=== PATIENT | female | born 1940 | race Caucasian/White ===

== ENCOUNTER 2018-09-10 13:14 | Observation (INO) ==
[2018-09-10] MEDS ORDERED: MethylPREDNISolone Sod Succinate Inj 125 MG/2 ML Vial IV.PUSH ONE (13:40)
--- NOTE | 2018-09-10 14:24 | XR ---
EXAM DATE: 09/10/2018 1:40 PM EDT AGE/SEX: 78 years / Female INDICATIONS: Short of breath CLINICAL DATA: This is the patient's initial encounter. Patient reports that signs and symptoms have been present for 1 day and indicates a pain score of 0/10. MEDICAL/SURGICAL HISTORY: . Chronic obstructive pulmonary disease None. COMPARISON: [facility] [place], CHEST SINGLE AP, 11/30/2015. . FINDINGS: A single AP view of the chest demonstrates the lungs to be symmetrically aerated without evidence of mass, infiltrate or effusion. The cardiomediastinal contours are unremarkable. Osseous structures a re intact. CONCLUSION: 1. No acute abnormality or significant interval change. Electronically signed by: Leonardo Bryant MD 09/10/2018 2:23 PM EDT
[2018-09-10 14:31] LABS: Baso # (Auto) 0.1 th/mm3 (0.0-0.2); Baso % (Auto) 0.4 % (0.0-2.0); Eos % (Auto) 0.3 % (0.0-4.0); Hematocrit 41.3 % (35.0-46.0); Hemoglobin 13.7 gm/dL (11.6-15.3); Lymph # (Auto) 3.3 th/mm3 (1.0-4.8); Lymph % (Auto) 23.5 % (9.0-44.0); Mean Corpuscular HGB Conc 33.2 % (32.0-36.0); Mean Corpuscular Hemoglobin 29.9 pg (27.0-34.0); Mean Platelet Volume 8.5 fL (7.0-11.0); Mono # (Auto) 0.8 th/mm3 (0.0-0.9); Mono % (Auto) 5.8 % (0.0-8.0); Neut # (Auto) 9.8 th/mm3 (1.8-7.7); Platelet Count 370 th/mm3 (150-450); Red Blood Count 4.59 mil/mm3 (4.00-5.30); Red Cell Distribution Width 13.8 % (11.6-17.2); White Blood Count 14.1 th/mm3 (4.0-11.0)
[2018-09-10 14:54] LABS: Calcium 9.2 mg/dL (8.5-10.1); Potassium 4.3 meq/L (3.5-5.1)
[2018-09-10] MEDS ORDERED: Sodium Chlor 0.9% Inj 500 ML IV.SIG SCH (15:00)
--- NOTE | 2018-09-10 15:18 | ED ---
HPI General Chief Complaint: Respiratory Symptoms Stated Complaint: respiratory Time Seen by Provider: 09/10/18 13:35 Source: patient and family Mode of arrival: wheelchair Limitations: no limitations History of Present Illness HPI Narrative: 78-year-old female with a history of COPD and asthma the presents to the ED for evaluation of cough and congestion. Patient has a history of this in the past. Has been seen for this evaluation in the past. She uses inhalers and nebulizers at home. Per caregiver her prednisone was increased from 10 mg to 20 mg by her to help with her symptoms. She does have a history of diabetes. She denies any chest pain or shortness of breath at this time. She was given some breathing treatments before coming in she does feel improved. She did come here to get her checked out as apparently there about to go out of town. She does have a significant history of allergies to Levaquin and penicillin. Denies any sick contacts. Denies any urinary or bowel movement issues. No fevers chills or sweats. Denies any pain. No sore throat. No ear pain. Related Data Home Medications Medication Instructions Recorded Confirmed albuterol sulfate 2.5 mg INHALATION Q4H PRN 08/02/18 09/10/18 alprazolam [Xanax] 0.25 mg PO BID PRN 08/02/18 09/10/18 cholestyramine-aspartame 4 g PO BID 08/02/18 09/10/18 hydrocodone-acetaminophen 1 tab PO Q6H PRN 08/02/18 09/10/18 metformin 850 mg PO BID 08/02/18 09/10/18 ropinirole 2 mg PO HS 08/02/18 09/10/18 prednisone 10 mg PO DAILY 09/10/18 09/10/18 Previous Rx's Medication Instructions Recorded albuterol sulfate 2 inh INHALATION Q4-6H PRN #1 g 09/10/18 albuterol sulfate 2.5 mg INHALATION Q4-8H PRN #90 ml 09/10/18 azithromycin 250 mg PO DAILY #6 tab 09/10/18 prednisone 20 mg PO BID 5 Days #10 tab 09/10/18 Allergies Allergy/AdvReac Type Severity Reaction Status Date / Time levofloxacin Allergy Severe ERYTHEMA Verified 09/10/18 13:28 penicillin G Allergy Severe ANAPHYLAXIS Verified 09/10/18 13:28 Review of Systems ROS: all other systems reviewed are negative [facility] Medical History Medical History Neuropathy (Acute) Anxiety (Acute) COPD (chronic obstructive pulmonary disease) (Acute) Cholecystectomy planned (Acute) Chronic diarrhea (Acute) Chronic pain (Acute) Diabetes (Acute) Surgical History Surgical History H/O abdominal surgery (Acute) Family History Family History Other CVA (cerebral vascular accident) Cervical cancer Social History Social History Substance History: No History of Abuse Second Hand Smoke Exposure: Yes Smoking Status: Never smoker How Often Do You Have a Drink Containing Alcohol: Never Recent Travel in [facility] within the Last 8 Weeks: No Recent Out of Country Travel within the Last 8 Weeks: No Immunization History Tetanus Immunization: Unsure Exam Narrative Exam Narrative: GENERAL: Well appearing SKIN: Focused skin assessment warm/dry. HEAD: Atraumatic. Normocephalic. EYES: Pupils equal and round. No scleral icterus. No injection or drainage. ENT: No nasal bleeding or discharge. Mucous membranes pink and moist. Tongue is midline. No uvula deviation. NECK: Trachea midline. No JVD. CARDIOVASCULAR: Regular rate and rhythm. No murmur appreciated. RESPIRATORY: No accessory muscle use. Mild wheezing heard in the lower lung berumen. Breath sounds equal bilaterally. GASTROINTESTINAL: Abdomen soft, non-tender, nondistended. Hepatic and splenic margins not palpable. MUSCULOSKELETAL: No obvious deformities. No clubbing. No cyanosis. No edema. Full range of motion of the upper and lower extremities bilaterally. 2+ pulses bilaterally. NEUROLOGICAL: Awake and alert. No obvious cranial nerve deficits. Motor grossly within normal limits. Normal speech. PSYCHIATRIC: Appropriate mood and affect; insight and judgment normal. Course Initial Documented Vital Signs Temperature 98.8 F 09/10/18 13:25 Pulse Rate 49 L 09/10/18 13:25 Respiratory Rate 24 09/10/18 13:25 Blood Pressure 140/59 L 09/10/18 13:25 Pulse Oximetry 95 09/10/18 13:25 Last Documented Vital Signs Temperature 98.8 F 09/10/18 13:25 Pulse Rate 88 09/10/18 17:27 Respiratory Rate 18 09/10/18 17:27 Blood Pressure 110/62 09/10/18 17:27 Pulse Oximetry 96 09/10/18 17:27 Medical Decision Making MDM Narrative Medical decision making narrative: 78-year-old female that presents to the ED for evaluation of cough. Patient was properly examined and was found to have signs and symptoms consistent appears to be mild COPD exacerbation with possible bronchitis. Labs and imaging ordered. Labs and imaging showed hyperglycemia otherwise unremarkable exam. Given breathing treatments and Solu- Medrol here. Sugar elevated. Patient was given bolus of fluid and insulin. Blood sugar rechecked and it appeared to be higher. Patient was given another 10 units of insulin and sugar still going higher. Because patient's sugars not controlled I do recommend admission. Likely this is partially a side effect of the steroids that she is already taking. I do recommend admission for further evaluation and treatment of this. Case discussed with Dr. Tobias who agrees with this. Family and patient agree with this. Medical Screen Exam Complete: Yes Emergency Medical Condition: Yes Differential Diagnosis Differential Diagnosis: COPD exacerbation versus asthma exacerbation versus normal exam versus bronchitis versus pneumonia Medical Records Medical records reviewed: Yes I reviewed the patient's medical records. Lab Data Lab results reviewed: Yes I reviewed the patient's lab results. Result diagrams: 09/10/18 13:40 09/10/18 13:40 Lab Results 09/10/18 09/10/18 09/10/18 Range/Units 13:40 13:40 15:57 WBC 14.1 H (4.0-11.0) th/mm3 RBC 4.59 (4.00-5.30) mil/mm3 Hgb 13.7 (11.6-15.3) gm/dL Hct 41.3 (35.0-46.0) % MCV 90.0 (80.0-100.0) fL MCH 29.9 (27.0-34.0) pg MCHC 33.2 (32.0-36.0) % RDW 13.8 (11.6-17.2) % Plt Count 370 (150-450) th/mm3 MPV 8.5 (7.0-11.0) fL Neut % (Auto) 70.0 (16.0-70.0) % Lymph % (Auto) 23.5 (9.0-44.0) % [place] % (Auto) 5.8 (0.0-8.0) % Eos % (Auto) 0.3 (0.0-4.0) % Baso % (Auto) 0.4 (0.0-2.0) % Neut # (Auto) 9.8 H (1.8-7.7) th/mm3 Lymph # (Auto) 3.3 (1.0-4.8) th/mm3 [place] # (Auto) 0.8 (0.0-0.9) th/mm3 Eos # (Auto) 0.0 (0.0-0.4) th/mm3 Baso # (Auto) 0.1 (0.0-0.2) th/mm3 WBC Differential . Differential Comment Auto diff final Sodium 130 L (136-145) meq/L Potassium 4.3 (3.5-5.1) meq/L Chloride 97 L (98-107) meq/L Carbon Dioxide 25.0 (21.0-32.0) meq/L Anion Gap 8 (5-15) meq/L BUN 22 H (7-18) mg/dL Creatinine 1.22 H (0.50-1.00) mg/dL Estimated GFR 43 L (>89) mL/min POC Glucose 525 H* (68-110) mg/dl Random Glucose 515 H* (74-106) mg/dL Calcium 9.2 (8.5-10.1) mg/dL 09/10/18 Range/Units 16:50 WBC (4.0-11.0) th/mm3 RBC (4.00-5.30) mil/mm3 Hgb (11.6-15.3) gm/dL Hct (35.0-46.0) % MCV (80.0-100.0) fL MCH (27.0-34.0) pg MCHC (32.0-36.0) % RDW (11.6-17.2) % Plt Count (150-450) th/mm3 MPV (7.0-11.0) fL Neut % (Auto) (16.0-70.0) % Lymph % (Auto) (9.0-44.0) % [place] % (Auto) (0.0-8.0) % Eos % (Auto) (0.0-4.0) % Baso % (Auto) (0.0-2.0) % Neut # (Auto) (1.8-7.7) th/mm3 Lymph # (Auto) (1.0-4.8) th/mm3 [place] # (Auto) (0.0-0.9) th/mm3 Eos # (Auto) (0.0-0.4) th/mm3 Baso # (Auto) (0.0-0.2) th/mm3 WBC Differential Differential Comment Sodium (136-145) meq/L Potassium (3.5-5.1) meq/L Chloride (98-107) meq/L Carbon Dioxide (21.0-32.0) meq/L Anion Gap (5-15) meq/L BUN (7-18) mg/dL Creatinine (0.50-1.00) mg/dL Estimated GFR (>89) mL/min POC Glucose 570 H* (68-110) mg/dl Random Glucose (74-106) mg/dL Calcium (8.5-10.1) mg/dL Imaging Data Attestation: I personally reviewed and interpreted this imaging study as follows : Radiologist's impression: Chest X-Ray 09/10/18 13:40 CONCLUSION: 1. No acute abnormality or significant interval change. Discharge Plan Discharge Disposition Patient Disposition: 30 Still Patient Discharge Condition Condition: Stable Discharge Details Anticipated Discharge Date: 09/10/18 Diagnosis: Acute hyperglycemia, Bronchitis, COPD exacerbation Physicians Team ED Provider: Janneth Cherry ED Midlevel Provider: Mickey Solano Primary Care Provider: Primary Care Loretta Olivas Attending Provider: Damien Scott Other Providers: [facility],Insurance Status ED Status: Admitted Observation Patient
[2018-09-10] MEDS ORDERED: Dextrose 50% in Water 50 ML Vial IV.PUSH PRN (17:08)
[2018-09-10] MEDS ORDERED: Acetaminophen 325 MG Tablet PO PRN (17:10)
[2018-09-10] MEDS: Heparin - SQ 10,000 UNITS/ML Vial SQ SCH (17:26)
[2018-09-10] MEDS: Sod Chloride 0.9% Inj 1,000 ML IV.CONT SCH (17:27)
--- NOTE | 2018-09-10 17:36 | P.HPIM ---
History of Present Illness Primary Care Physician: No Primary Care Physician Chief Complaint: Shortness of breath History of Present Illness: The patient is a 78-year-old female with a past medical history of COPD and diabetes who is presenting to the hospital with shortness of breath. She says her breathing started to get troublesome about 1 week ago. She says she developed a cough along with phlegm production. She denies any associated chest pain or any fevers. She said that she has been on steroids for a long time, prescribed by her primary care doctor. She says she has been tolerating a diet. She ambulates with a walker. She says she is currently living with her daughter and her grandson. The patient currently feels like her breathing is much improved, however, her blood sugars were noted to be elevated even after multiple doses of insulin. She did receive IV Solu-Medrol in the emergency department and per report her home prednisone was doubled up this morning. Discussed with nursing. Review of Systems All other systems reviewed negative except as stated in HPI PMFSH - History History Provided By: Patient - Medical History Medical History: Medical History (Last Updated 09/10/18 @ 17:29 by Damien Scott DO) Neuropathy Anxiety COPD (chronic obstructive pulmonary disease) Cholecystectomy planned Chronic diarrhea Chronic pain Diabetes - Surgical History Surgical History: Surgical History (Last Updated 09/10/18 @ 17:29 by Damien Scott DO) H/O abdominal surgery - Family History Family History: Family History (Last Updated 09/10/18 @ 17:31 by Damien Scott DO) Other CVA (cerebral vascular accident) Cervical cancer - Social History I have reviewed the patient's Social History: Yes - Tobacco History Second Hand Smoke Exposure: Yes Smoking Status: Never smoker - Alcohol History How Often Do You Have a Drink Containing Alcohol: Never - Substance Use History Substance History: No History of Abuse - Travel History Recent Travel in the [place] Within the Last 8 Weeks: No Recent Travel Out of the Country Within the Last 8 Weeks: No - Immunization History Tetanus Immunization: Unsure Medications and Allergies Active Medications: Active Medications Acetaminophen (Tylenol) 650 mg PO Q4H PRN PRN Reason: Temp > 100.4; pain 1-6 Hydrocodone Bitart/Acetaminophen ([place] 10/325) 1 tab PO Q4H PRN PRN Reason: Pain 6-10 Alprazolam (Xanax) 0.25 mg PO BID PRN PRN Reason: Anxiety Cholestyramine Resin (Questran Light 4 Gm Pkt) 4 gm PO BID JESSICA Dextrose (D50w Vial) 50 ml IV.PUSH UNSCH PRN PRN Reason: PER HYPOGLYCEMIA PROTOCOL Glucagon (Glucagon Inj) 1 mg OTHER PRN PRN PRN Reason: for Hypoglycemia Protocol Heparin Sodium (Porcine) (Heparin Inj) 5,000 units SQ Q8H JESSICA Sodium Chloride (Ns Inj) 500 mls @ 0 mls/hr IV.SIG BOLUS JESSICA Last Infusion: 09/10/18 16:21 Dose: Infused Sodium Chloride (Ns Inj) 1,000 mls @ 100 mls/hr IV.CONT .Q10H JESSICA Insulin Aspart (Novolog Insulin Correctional Sugar Inj) 0 unit SQ ACHS JESSICA; Protocol Insulin Aspart (Novolog Inj) 3 units SQ TIDAC JESSICA Insulin Detemir (Levemir Inj) 15 unit SQ HS JESSICA Prednisone (Deltasone) 10 mg PO DAILY JESSICA Ropinirole HCl (Requip) 2 mg PO HS JESSICA Senna/Docusate Sodium (Christa-Colace) 1 tab PO BID [facility] Allergies Allergy/AdvReac Type Severity Reaction Status Date / Time levofloxacin Allergy Severe ERYTHEMA Verified 09/10/18 13:28 penicillin G Allergy Severe ANAPHYLAXIS Verified 09/10/18 13:28 Home Medications Medication Instructions Recorded Confirmed Type albuterol sulfate 2.5 mg INHALATION Q4H PRN 08/02/18 09/10/18 History alprazolam [Xanax] 0.25 mg PO BID PRN 08/02/18 09/10/18 History cholestyramine-aspartame 4 g PO BID 08/02/18 09/10/18 History hydrocodone-acetaminophen 1 tab PO Q6H PRN 08/02/18 09/10/18 History metformin 850 mg PO BID 08/02/18 09/10/18 History ropinirole 2 mg PO HS 08/02/18 09/10/18 History prednisone 10 mg PO DAILY 09/10/18 09/10/18 History Exam Vital signs: Vital Signs 09/10/18 13:25 09/10/18 13:27 09/10/18 13:40 Temperature 98.8 F Pulse Rate 49 L 101 H Respiratory Rate 24 20 Blood Pressure 140/59 L 105/51 L Pulse Oximetry 95 95 95 09/10/18 13:54 09/10/18 17:10 Temperature Pulse Rate 93 H 102 H Respiratory Rate 20 20 Blood Pressure 106/58 L Pulse Oximetry 96 Intake & Output 09/09/18 09/10/18 09/10/18 18:59 06:59 18:59 Intake Total 500 / 500 Balance 500 / 500 Weight 74.843 kg Intake: IV 500 / 500 NS Inj 500 ML @ Wide Open IV. 500 / 500 SIG BOLUS JESSICA Rx#:[id number] Narrative: GENERAL: Well appearing, no distress. SKIN: Focused skin assessment warm/dry. HEAD: Atraumatic. Normocephalic. EYES: Pupils equal and round. No scleral icterus. No injection or drainage. ENT: No nasal bleeding or discharge. Mucous membranes pink and moist. Tongue is midline. No uvula deviation. NECK: Trachea midline. No JVD. CARDIOVASCULAR: Regular rate and rhythm. No murmur appreciated. RESPIRATORY: No accessory muscle use. Mild wheezing heard in the lower lung berumen. Breath sounds equal bilaterally. GASTROINTESTINAL: Abdomen soft, non-tender, nondistended. Hepatic and splenic margins not palpable. MUSCULOSKELETAL: No obvious deformities. No clubbing. No cyanosis. No edema. Full range of motion of the upper and lower extremities bilaterally. 2+ pulses bilaterally. NEUROLOGICAL: Awake and alert. No obvious cranial nerve deficits. Motor grossly within normal limits. Normal speech. PSYCHIATRIC: Appropriate mood and affect; insight and judgment normal. Results - Labs CBC & Chem 7: 09/10/18 13:40 09/10/18 13:40 Labs: Short CBC 09/10/18 Range/Units 13:40 WBC 14.1 H (4.0-11.0) th/mm3 Hgb 13.7 (11.6-15.3) gm/dL Hct 41.3 (35.0-46.0) % Plt Count 370 (150-450) th/mm3 BMP 09/10/18 13:40 Sodium 130 L Potassium 4.3 Chloride 97 L Carbon Dioxide 25.0 BUN 22 H Creatinine 1.22 H Calcium 9.2 - Imaging Impressions Chest X-Ray 09/10/18 13:40 CONCLUSION: 1. No acute abnormality or significant interval change. Caprini VTE Risk Assessment Caprini VTE Risk Assessment: Moderate/High Risk (score >= 2) Caprini Risk Assessment Model: Point Value = 1 Point Value = 2 Point Value = 3 Point Value = 5 Age 41-60 Minor surgery BMI > 25 kg/m2 Swollen legs Varicose veins or History of unexplained or recurrent spontaneous Oral contraceptives or hormone replacement Sepsis (< 1 month) Serious lung disease, including pneumonia (< 1 month) Abnormal pulmonary function Acute myocardial infarction Congestive heart failure (< 1 month) History of inflammatory bowel disease Medical patient at bed rest Age 61-74 Arthroscopic surgery Major open surgery (> 45 min) Laparoscopic surgery (> 45 min) Malignancy Confined to bed (> 72 hours) Immobilizing plaster cast Central venous access Age >= 75 History of VTE Family history of VTE Factor V Leiden Prothrombin [id number] Lupus anticoagulant Anticardiolipin antibodies Elevated serum homocysteine Heparin-induced thrombocytopenia Other congenital or acquired thrombophilia Stroke (< 1 month) Elective arthroplasty Hip, pelvis, or leg fracture Acute spinal cord injury (< 1 month) Prophylaxis Regimen: Total Risk Factor Score Risk Level Prophylaxis Regimen 0-1 Low Early ambulation 2 Moderate Order ONE of the following: *Sequential Compression Device (SCD) *Heparin 5000 units SQ BID 3-4 Higher Order ONE of the following medications: *Heparin 5000 units SQ TID *Enoxaparin/Lovenox 40 mg SQ daily (WT < 150 kg, CrCl > 30 mL/min) *Enoxaparin/Lovenox 30 mg SQ daily (WT < 150 kg, CrCl > 10-29 mL/min) *Enoxaparin/Lovenox 30 mg SQ BID (WT < 150 kg, CrCl > 30 mL/min) AND/OR *Sequential Compression Device (SCD) 5 or more Highest Order ONE of the following medications: *Heparin 5000 units SQ TID (Preferred with Epidurals) *Enoxaparin/Lovenox 40 mg SQ daily (WT < 150 kg, CrCl > 30 mL/min) *Enoxaparin/Lovenox 30 mg SQ daily (WT < 150 kg, CrCl > 10-29 mL/min) *Enoxaparin/Lovenox 30 mg SQ BID (WT < 150 kg, CrCl > 30 mL/min) AND *Sequential Compression Device (SCD) Assessment and Plan - Plan COPD exacerbation Currently improved. CXR unremarkable. -nebs and oxygen as needed. -resume home prednisone 10 mg daily. -IS, encourage ambulation. Hyperglycemia/ DM On metformin as an outpt. Exacerbated by IV steroids. -resume home prednisone of 10 mg daily. -3 units aspart with meals, 15 units Levemir HS. -insulin sliding scale, diabetic diet. -IVFs. Renal insufficiency Likely pre-renal. Also with pseudohyponatremia from the hyperglycemia. -IVFs and monitor. -avoid nephrotoxins. Leukocytosis Likely s/t chronic steroids. -monitor. PPx: Heparin Code Status: Full
[2018-09-10] MEDS: Senna/Docusate Sodium 8.6/50 MG Tablet PO SCH (20:15)
[2018-09-10] MEDS: Cholestyramine Light 4 GM Packet PO SCH (20:49)
[2018-09-10] MEDS: Insulin NovoLOG Aspart Correctional Sugar Inj SQ SCH (22:44)
[2018-09-10] MEDS: Insulin Detemir Inj 1,000 UNIT/10 ML Vial SQ SCH (22:44)
[2018-09-11] MEDS: Heparin - SQ 10,000 UNITS/ML Vial SQ SCH ×3 (00:15→17:23)
[2018-09-11] MEDS: Sod Chloride 0.9% Inj 1,000 ML IV.CONT SCH ×2 (04:04→14:11)
[2018-09-11] MEDS: ALPRAZolam 0.25 MG Tablet PO PRN (05:17)
[2018-09-11 06:07] LABS: Baso # (Auto) 0.1 th/mm3 (0.0-0.2); Baso % (Auto) 0.6 % (0.0-2.0); Hematocrit 35.6 % (35.0-46.0); Hemoglobin 12.4 gm/dL (11.6-15.3); Lymph # (Auto) 2.4 th/mm3 (1.0-4.8); Lymph % (Auto) 17.7 % (9.0-44.0); Mean Corpuscular HGB Conc 34.7 % (32.0-36.0); Mean Corpuscular Hemoglobin 30.3 pg (27.0-34.0); Mean Corpuscular Volume 87.3 fL (80.0-100.0); Mean Platelet Volume 8.7 fL (7.0-11.0); Mono # (Auto) 0.6 th/mm3 (0.0-0.9); Mono % (Auto) 4.1 % (0.0-8.0); Neut # (Auto) 10.8 th/mm3 (1.8-7.7); Neut % (Auto) 77.6 % (16.0-70.0); Platelet Count 324 th/mm3 (150-450); Red Blood Count 4.08 mil/mm3 (4.00-5.30); Red Cell Distribution Width 13.8 % (11.6-17.2); White Blood Count 13.8 th/mm3 (4.0-11.0)
[2018-09-11 06:36] LABS: Alanine Aminotransferase 122 U/L (10-53); Albumin 2.7 g/dL (3.4-5.0); Alkaline Phosphatase 128 U/L (45-117); Anion Gap 9 meq/L (5-15); Aspartate Aminotransferase 18 U/L (15-37); Blood Urea Nitrogen 28 mg/dL (7-18); Calcium 8.9 mg/dL (8.5-10.1); Carbon Dioxide 22.9 meq/L (21.0-32.0); Chloride 103 meq/L (98-107); Glomerular Filtration Rate 64 mL/min (>89); Glucose,Random 151 mg/dL (74-106); Potassium 4.3 meq/L (3.5-5.1); Sodium 135 meq/L (136-145); Total Protein 6.1 g/dL (6.4-8.2)
[2018-09-11] MEDS: Senna/Docusate Sodium 8.6/50 MG Tablet PO SCH ×2 (08:21→21:53)
[2018-09-11] MEDS: Insulin NovoLOG Aspart Correctional Sugar Inj SQ SCH ×4 (08:21→22:06)
[2018-09-11] MEDS: predniSONE 10 MG Tablet PO SCH (08:21)
[2018-09-11] MEDS: Cholestyramine Light 4 GM Packet PO SCH ×2 (08:25→22:06)
--- NOTE | 2018-09-11 16:30 | P.PN ---
Subjective Interval history: Patient is seen lying quietly in bed. She tells me that she is feeling better and her breathing has improved. She does have some sputum but she is coughing up. No chest pain. No nausea vomiting or diarrhea. No fever or chills. Physical Exam Vital signs: Vital Signs 09/10/18 17:10 09/10/18 17:27 09/10/18 19:30 Temperature Pulse Rate 102 H 88 75 Respiratory Rate 20 18 18 Blood Pressure 106/58 L 110/62 Pulse Oximetry 96 96 09/10/18 20:00 09/11/18 00:00 09/11/18 00:15 Temperature 98.1 F Pulse Rate 68 Respiratory Rate 16 16 16 Blood Pressure 109/59 L Pulse Oximetry 97 09/11/18 00:45 09/11/18 01:38 09/11/18 03:38 Temperature 98.1 F Pulse Rate 65 Respiratory Rate 16 16 16 Blood Pressure 133/64 Pulse Oximetry 95 09/11/18 04:41 09/11/18 07:37 09/11/18 07:38 Temperature 98.3 F Pulse Rate 65 66 Respiratory Rate 16 17 Blood Pressure 135/61 Pulse Oximetry 96 96 09/11/18 07:51 09/11/18 11:59 09/11/18 12:49 Temperature 98.2 F Pulse Rate 67 75 78 Respiratory Rate 18 18 18 Blood Pressure 118/55 L 123/62 Pulse Oximetry 97 96 Intake & Output 09/10/18 09/11/18 09/11/18 18:59 06:59 18:59 Intake Total 500 / 500 1000 / 1000 1000 / 1000 Output Total 600 / 600 Balance 500 / 500 400 / 400 1000 / 1000 Weight 74.843 kg 75.47 kg Intake: IV 500 / 500 1000 / 1000 1000 / 1000 NS Inj 1,000 ML @ 100 mls/hr IV 1000 / 1000 1000 / 1000 .CONT .Q10H JESSICA Rx#:[id number] NS Inj 500 ML @ Wide Open IV. 500 / 500 SIG BOLUS JESSICA Rx#:[id number] Output: Urine 600 / 600 Other: Weight On Admission 74.843 kg Narrative: GENERAL: Well appearing, no distress. SKIN: Focused skin assessment warm/dry. Patient does have dressing on sacral ulcer that was present at admit. HEAD: Atraumatic. Normocephalic. CARDIOVASCULAR: Regular rate and rhythm. RESPIRATORY: No accessory muscle use. Mild wheezing heard in the lower lung berumen. Breath sounds equal bilaterally. GASTROINTESTINAL: Abdomen soft, non-tender, nondistended. MUSCULOSKELETAL: No obvious deformities. No clubbing. No cyanosis. No edema. Full range of motion of the upper and lower extremities bilaterally. 2+ pulses bilaterally. NEUROLOGICAL: Awake and alert. No obvious cranial nerve deficits. Motor grossly within normal limits. Normal speech. PSYCHIATRIC: Appropriate mood and affect; insight and judgment normal. Results - Labs CBC & Chem 7: 09/11/18 05:15 09/11/18 05:15 Laboratory Results - last 24 hr 09/10/18 09/10/18 09/10/18 16:50 21:39 22:46 WBC RBC Hgb Hct MCV MCH MCHC RDW Plt Count MPV Neut % (Auto) Lymph % (Auto) [place] % (Auto) Eos % (Auto) Baso % (Auto) Neut # (Auto) Lymph # (Auto) [place] # (Auto) Eos # (Auto) Baso # (Auto) WBC Differential Differential Comment Sodium Potassium Chloride Carbon Dioxide Anion Gap BUN Creatinine Estimated GFR POC Glucose 570 H* 529 H* Random Glucose 453 H* Calcium Total Bilirubin AST ALT Alkaline Phosphatase Total Protein Albumin 09/11/18 09/11/18 09/11/18 00:36 05:15 05:15 WBC 13.8 H RBC 4.08 Hgb 12.4 Hct 35.6 MCV 87.3 MCH 30.3 MCHC 34.7 RDW 13.8 Plt Count 324 MPV 8.7 Neut % (Auto) 77.6 H Lymph % (Auto) 17.7 [place] % (Auto) 4.1 Eos % (Auto) 0.0 Baso % (Auto) 0.6 Neut # (Auto) 10.8 H Lymph # (Auto) 2.4 [place] # (Auto) 0.6 Eos # (Auto) 0.0 Baso # (Auto) 0.1 WBC Differential . Differential Comment Auto diff final Sodium 135 L Potassium 4.3 Chloride 103 Carbon Dioxide 22.9 Anion Gap 9 BUN 28 H Creatinine 0.86 Estimated GFR 64 L POC Glucose 446 H Random Glucose 151 H D Calcium 8.9 Total Bilirubin 0.4 AST 18 ALT 122 H Alkaline Phosphatase 128 H Total Protein 6.1 L Albumin 2.7 L 09/11/18 09/11/18 08:16 12:58 WBC RBC Hgb Hct MCV MCH MCHC RDW Plt Count MPV Neut % (Auto) Lymph % (Auto) [place] % (Auto) Eos % (Auto) Baso % (Auto) Neut # (Auto) Lymph # (Auto) [place] # (Auto) Eos # (Auto) Baso # (Auto) WBC Differential Differential Comment Sodium Potassium Chloride Carbon Dioxide Anion Gap BUN Creatinine Estimated GFR POC Glucose 117 H 252 H Random Glucose Calcium Total Bilirubin AST ALT Alkaline Phosphatase Total Protein Albumin Assessment and Plan - Assessment (1) Bronchitis Code(s): J40 - Bronchitis, not specified as acute or chronic Status: Acute (2) COPD exacerbation Code(s): J44.1 - Chronic obstructive pulmonary disease with (acute) exacerbation Status: Acute (3) Acute hyperglycemia Code(s): R73.9 - Hyperglycemia, unspecified Status: Acute - Plan COPD exacerbation Currently improved. CXR unremarkable. -nebs and oxygen as needed. -resume home prednisone 10 mg daily. -IS, encourage ambulation. -mucinex Hyperglycemia/ DM On metformin as an outpt. Exacerbated by IV steroids. -resume home prednisone of 10 mg daily. -3 units aspart with meals, 15 units Levemir HS. -insulin sliding scale, diabetic diet. -IVFs. Renal insufficiency Likely pre-renal. Also with pseudohyponatremia from the hyperglycemia. -IVFs and monitor. -avoid nephrotoxins. Leukocytosis Likely s/t chronic steroids. -monitor. Elevated liver enzymes -Patient denies history of liver problems. Denies history of hep C. No abdominal tenderness -Possibly reactionary; monitor for trend PPx: Heparin Code Status: Full Discharge planning: Patient ambulates with walker at home. Has good family support with and daughter living in home with her.
[2018-09-11] MEDS: Insulin Detemir Inj 1,000 UNIT/10 ML Vial SQ SCH (22:06)
[2018-09-11] MEDS: guaiFENesin 600 MG ER Tablet PO SCH (22:06)
[2018-09-12] MEDS: ALPRAZolam 0.25 MG Tablet PO PRN (01:42)
[2018-09-12] MEDS: Heparin - SQ 10,000 UNITS/ML Vial SQ SCH ×2 (01:42→09:40)
[2018-09-12] MEDS: Sod Chloride 0.9% Inj 1,000 ML IV.CONT SCH ×2 (01:43→09:41)
[2018-09-12 07:38] LABS: Baso # (Auto) 0.1 th/mm3 (0.0-0.2); Baso % (Auto) 0.8 % (0.0-2.0); Eos # (Auto) 0.1 th/mm3 (0.0-0.4); Eos % (Auto) 0.9 % (0.0-4.0); Hematocrit 36.9 % (35.0-46.0); Hemoglobin 12.4 gm/dL (11.6-15.3); Lymph # (Auto) 5.7 th/mm3 (1.0-4.8); Lymph % (Auto) 40.3 % (9.0-44.0); Mean Corpuscular HGB Conc 33.7 % (32.0-36.0); Mean Corpuscular Hemoglobin 30.1 pg (27.0-34.0); Mean Corpuscular Volume 89.2 fL (80.0-100.0); Mean Platelet Volume 8.5 fL (7.0-11.0); Mono # (Auto) 0.9 th/mm3 (0.0-0.9); Mono % (Auto) 6.3 % (0.0-8.0); Neut # (Auto) 7.3 th/mm3 (1.8-7.7); Neut % (Auto) 51.7 % (16.0-70.0); Platelet Count 316 th/mm3 (150-450); Red Blood Count 4.14 mil/mm3 (4.00-5.30); Red Cell Distribution Width 14.4 % (11.6-17.2)
[2018-09-12 07:40] VITALS: BP 130/65; TEMP 98.6
[2018-09-12 07:58] VITALS: PULSE 68; RESP 14
[2018-09-12 07:59] VITALS: O2SAT 96
[2018-09-12 08:12] LABS: Albumin 2.7 g/dL (3.4-5.0); Anion Gap 8 meq/L (5-15); Aspartate Aminotransferase 13 U/L (15-37); Calcium 8.8 mg/dL (8.5-10.1); Carbon Dioxide 25.4 meq/L (21.0-32.0); Chloride 105 meq/L (98-107); Glomerular Filtration Rate 63 mL/min (>89); Glucose,Random 79 mg/dL (74-106); Potassium 4.1 meq/L (3.5-5.1); Sodium 138 meq/L (136-145)
[2018-09-12 08:20] LABS: Alanine Aminotransferase 85 U/L (10-53); Alkaline Phosphatase 105 U/L (45-117); Blood Urea Nitrogen 21 mg/dL (7-18); Total Protein 5.9 g/dL (6.4-8.2)
[2018-09-12 08:25] LABS: Creatine Kinase 21 U/L (26-192)
[2018-09-12 09:25] LABS: Lymphocytes 31 % (9-44); Monocytes 5 % (0-8); Platelet Estimate Normal (Normal); Platelet Morphology Normal (Normal); RBC Morphology Normal (Normal)
[2018-09-12] MEDS: Insulin NovoLOG Aspart Correctional Sugar Inj SQ SCH (09:31)
[2018-09-12] MEDS: Senna/Docusate Sodium 8.6/50 MG Tablet PO SCH (09:39)
[2018-09-12] MEDS: predniSONE 10 MG Tablet PO SCH (09:39)
[2018-09-12] MEDS: guaiFENesin 600 MG ER Tablet PO SCH (09:39)
[2018-09-12] MEDS: Cholestyramine Light 4 GM Packet PO SCH (09:40)
--- NOTE | 2018-09-12 11:14 | P.DS ---
Date of admission: 09/10/18 17:18 Primary care physician: No Primary Care Physician Brief History from admission: The patient is a 78-year-old female with a past medical history of COPD and diabetes who is presenting to the hospital with shortness of breath. She says her breathing started to get troublesome about 1 week ago. She says she developed a cough along with phlegm production. She denies any associated chest pain or any fevers. She said that she has been on steroids for a long time, prescribed by her primary care doctor. DS: Medications - Discharge Medications Prescriptions: albuterol sulfate 2.5 mg INHALATION Q4-8H PRN #90 ml PRN Reason: shortness of breath or wheezing albuterol sulfate 2 inh INHALATION Q4-6H PRN #1 g PRN Reason: shortness of breath azithromycin 250 mg PO DAILY #6 tab budesonide-formoterol [Symbicort] 1 puff INH BID #1 inhaler metformin [Glucophage] 1,000 mg PO BIDPC #90 tab prednisone 20 mg PO BID 5 Days #10 tab DS: Summary Hospital Course: This patient is a 78-year-old with a diagnosis of COPD and diabetes mellitus type 2. The patient presented to our facility with complaints of shortness of breath. She said that approximately 1 week prior to admission she began to have a cough with phlegm production. She was also having some shortness of breath with ambulation. 1. COPD exacerbation The patient presents with the symptoms mentioned above. She was started on antibiotics as well as steroids for the COPD exacerbation. Chest x-ray was done which did not show any infiltrate. She has been on room air and is now ambulate without any complaints of shortness of breath. The patient's symptoms have improved significantly. She will be's sent home with an albuterol and Symbicort inhalers. She was also given a prescription for azithromycin which the patient can continue for the next few days. She should follow-up with her primary care physician which the patient will have in [place] as she is currently in the process of moving this week. Outpatient pulmonary function tests should be performed. As per the patient she takes 10 mg of prednisone daily however it is unclear why the patient is on prednisone chronically. This should be addressed by the patient's primary care physician and if there is no need for the patient to be on steroids daily this should be discontinued. 2. Uncontrolled diabetes mellitus type 2 3. Acute kidney injury likely prerenal The patient presented with an elevated blood sugar around 500. She also had an elevated serum creatinine of 1.22. After the initiation of IV fluids the patient's serum creatinine normalized. I believe the patient's acute kidney injury was likely due to persistent hyperglycemia and polyuria.. Her blood sugars were kept under control with Lantus and a low-dose insulin sliding scale. Her metformin dose will be increased to 1000 mg p.o. twice daily. She should follow-up with her primary care physician within the next week. She was advised to check her blood sugars at home and log them in a chart and present this log to her primary care physician. Her diabetes medication regimen can be adjusted as needed. She will be discharged home today. - Time Spent with Patient Total time spent providing and/or coordinating discharge services: Greater than 30 minutes - Quality: VTE Deep Vein Thrombosis/Pulmonary Embolism Present on Admission: No Exam Vital signs: Vital Signs 09/11/18 11:59 09/11/18 12:49 09/11/18 16:00 Temperature 98.2 F 97.9 F Pulse Rate 75 78 69 Respiratory Rate 18 18 18 Blood Pressure 123/62 115/64 Pulse Oximetry 96 97 09/11/18 19:59 09/11/18 20:00 09/12/18 00:00 Temperature 97.9 F 98.1 F Pulse Rate 69 75 65 Respiratory Rate 18 16 16 Blood Pressure 123/56 L 139/70 Pulse Oximetry 93 L 96 09/12/18 04:00 09/12/18 07:37 09/12/18 07:57 Temperature 97.8 F 98.6 F Pulse Rate 64 71 68 Respiratory Rate 16 20 14 Blood Pressure 127/69 130/65 Pulse Oximetry 96 94 L 09/12/18 07:58 Temperature Pulse Rate Respiratory Rate Blood Pressure Pulse Oximetry 96 Intake & Output 09/11/18 09/12/18 09/12/18 18:59 06:59 18:59 Intake Total 2200 / 2200 1360 / 1360 Balance 2200 / 2200 1360 / 1360 Weight 78.8 kg Intake: IV 1000 / 1000 1000 / 1000 NS Inj 1,000 ML @ 100 mls/hr IV 1000 / 1000 1000 / 1000 .CONT .Q10H JESSICA Rx#:[id number] Oral 1200 / 1200 360 / 360 Other: # Voids 3 3 Date of Last Bowel Movement 09/10/18 Narrative: General patient in no acute distress HEENT extraocular movements are intact, clear oropharyngeal mucosa, no JVD Cardiovascular S1-S2 audible, RRR, no murmurs rubs or gallops Respiratory clear to auscultation bilaterally Abdomen soft, nontender, nondistended, normal bowel sounds Extremities no edema 2+ distal pulses in bilateral upper and lower extremities Neuro cranial nerves II through XII intact Results Procedures completed during hospitalization: none Labs on day of discharge: Labs from last 24 hours 09/12/18 09/12/18 09/12/18 08:33 05:55 05:55 WBC 14.0 H RBC 4.14 Hgb 12.4 Hct 36.9 MCV 89.2 MCH 30.1 MCHC 33.7 RDW 14.4 Plt Count 316 MPV 8.5 Prelim Diff (Auto) Slide review pending Neut % (Auto) 51.7 Lymph % (Auto) 40.3 Schleicher % (Auto) 6.3 Eos % (Auto) 0.9 Baso % (Auto) 0.8 Neut # (Auto) 7.3 Lymph # (Auto) 5.7 H Schleicher # (Auto) 0.9 Eos # (Auto) 0.1 Baso # (Auto) 0.1 WBC Differential Manual diff final Seg Neuts % (Manual) 63 Band Neuts % (Manual) 1 Lymphocytes % (Manual) 31 Monocytes % (Manual) 5 Abs Neuts (Manual) 9.0 H Differential Comment . Platelet Estimate Normal Platelet Morphology Normal RBC Morphology Normal Sodium 138 Potassium 4.1 Chloride 105 Carbon Dioxide 25.4 Anion Gap 8 BUN 21 H Creatinine 0.87 Estimated GFR 63 L POC Glucose 94 Random Glucose 79 Calcium 8.8 Total Bilirubin 0.3 AST 13 L ALT 85 H Alkaline Phosphatase 105 Total Creatine Kinase 21 L Total Protein 5.9 L Albumin 2.7 L 09/11/18 09/11/18 09/11/18 21:55 17:22 12:58 WBC RBC Hgb Hct MCV MCH MCHC RDW Plt Count MPV Prelim Diff (Auto) Neut % (Auto) Lymph % (Auto) Schleicher % (Auto) Eos % (Auto) Baso % (Auto) Neut # (Auto) Lymph # (Auto) Schleicher # (Auto) Eos # (Auto) Baso # (Auto) WBC Differential Seg Neuts % (Manual) Band Neuts % (Manual) Lymphocytes % (Manual) Monocytes % (Manual) Abs Neuts (Manual) Differential Comment Platelet Estimate Platelet Morphology RBC Morphology Sodium Potassium Chloride Carbon Dioxide Anion Gap BUN Creatinine Estimated GFR POC Glucose 318 H 279 H 252 H Random Glucose Calcium Total Bilirubin AST ALT Alkaline Phosphatase Total Creatine Kinase Total Protein Albumin - Impressions ITS Impressions Chest X-Ray 09/10/18 13:40 CONCLUSION: 1. No acute abnormality or significant interval change. Discharge Plan - Discharge Disposition Patient Disposition: 01 Discharge Home - Discharge Condition Condition: Stable - Discharge Order Discharge Orders: Discharge Order (Routine); Ordered 09/12/18 Ordered By: Lawson Hassan - Discharge Details Anticipated Discharge Date: 09/10/18 - Physicians Team Primary Care Provider: Primary Care Loretta Olivas Attending Provider: Lawson Hassan Other Providers: [employer],Insurance
[2018-09-12] MEDS ORDERED: Budesonide-Formoterol 80/4.5 MCG 6.9 GM Inhaler INH SCH (21:00)
== END 2018-09-12 12:43 | disposition home or self-care (01) ==
LOC: NEPC 13:14 → NEDA 13:14 → NEPGCP 18:48
PROVIDERS: ADMIT Hospitalist; ATTEND Hospitalist